=== PATIENT | male | born 1985 | race Caucasian/White ===

== ENCOUNTER 2017-04-26 07:29 | Emergency (ER) | payer BC ==
[2017-04-26] MEDS ORDERED: Bacitracin Oint 1 GM U/D Packet TOP ONE (07:58)
[2017-04-26] MEDS ORDERED: Diphtheria,Pertussis(Acell),Tetanus Vaccine 0.5 ML Syringe IM ONE (07:58)
--- NOTE | 2017-04-26 08:04 | EDM.PDOC ---
ED HPI GENERAL MEDICAL PROBLEM - General Chief Complaint: Skin Complaint Stated Complaint: LEFT LEG INFECTION Time Seen by Provider: 04/26/17 07:51 - History of Present Illness INITIAL COMMENTS - FREE TEXT/NARRATIVE: HISTORY AND PHYSICAL: History of present illness: The patient is a healthy 31-year-old male who presents with complaints of a hardened reddened area to the back of his left thigh that he has had for several months and over the last 1 week it has gotten more red swollen and last evening drained a large amount of fluid. The patient says he has had cysts in the past and he was just monitoring this on his leg and when he got worse over the last 1 week he became concerned. Last evening it drained spontaneously a large amount of fluid and he says that overall it actually looks better. He was concerned because he thought he needed antibiotics. He has no muscle weakness neurosensory changes in the leg and no systemic complaints of fever chills chest pain or shortness of breath. Patient is unsure of his last tetanus shot Review of systems: As per history of present illness and below otherwise all systems reviewed and negative. Past medical history: As per history of present illness and as reviewed below otherwise noncontributory. Surgical history: As per history of present illness and as reviewed below otherwise noncontributory. Social history: No reported history of drug or alcohol abuse. Family history: As per history of present illness and as reviewed below otherwise noncontributory. Physical exam: Gen.: Well-developed well-nourished male who is nontoxic and afebrile HEENT: Atraumatic, normocephalic, negative for conjunctival pallor or scleral icterus, mucous membranes moist, throat clear, neck supple, nontender, trachea midline. Lungs: Clear to auscultation, breath sounds equal bilaterally, chest nontender. Heart: S1S2, regular rate and rhythm no overt murmurs Abdomen: Soft, nondistended, nontender. NABS. Pelvis: Stable nontender. Genitourinary: Deferred. Rectal: Deferred. Extremities: Atraumatic full range of motion of all extremities without defects or deformities. At the posterior left thigh there is a 28 x 25 cm area of pinkish erythema which is ill-defined and there is a large amount of induration at its center which encompasses about two thirds of that measurement. In the center there is a scab-like area with a teeny area of fluctuance and there is some spontaneous drainage noted. The compartment has some brawny edema superficially but the compartment is soft and the patient is has full range of motion of the leg. The area has been marked by me. The legs are, negative for cords or calf pain. Neurovascular unremarkable. Neuro: Awake, alert, oriented. Cranial nerves II through XII unremarkable. Cerebellum unremarkable. Motor and sensory unremarkable throughout. Exam nonfocal. Diagnostics: [] Therapeutics: Tdao, wound care Patient has been offered Toradol patient refused I discussed with the patient that as it spontaneously drained the majority of the fluid and is only a small amount of fluid left which is continuing to drain we would just dress the wound. There is not a significant amount of fluctuance for a formal incision and drainage. We'll place on antibiotics and suggest close follow-up Impression: Left thigh abscess with spontaneous drainage and cellulitis Definitive disposition and diagnosis as appropriate pending reevaluation and review of above. left upper thigh Pain Score (Numeric/FACES): 4 - Related Data Allergies Allergy/AdvReac Type Severity Reaction Status Date / Time No Known Allergies Allergy Verified 04/26/17 07:37 Home Meds: Home Meds . [No Known Home Meds] 04/26/17 [History] Past Medical History Psychiatric History: Reports: None - Infectious Disease History Infectious Disease History: Reports: Chicken Pox, Influenza - Past Surgical History Musculoskeletal Surgical History: Reports: Other (See Below) Other Musculoskeletal Surgeries/Procedures:: left thumb amputation Social & Family History - Tobacco Use Smoking Status *Q: Never Smoker ED ROS GENERAL - Review of Systems Review Of Systems: ROS reveals no pertinent complaints other than HPI. ED EXAM, SKIN/RASH Exam: See Below (See dictation) Course - Vital Signs Last Recorded V/S: Last Vital Signs Temp 36.3 C 04/26/17 07:38 Pulse 63 04/26/17 07:38 Resp 20 04/26/17 07:38 BP 147/89 H 04/26/17 07:38 Pulse Ox 100 04/26/17 07:38 - Orders/Labs/Meds Orders: Active Orders 24 hr Category Date Time Status Vaccines to be Administered [RC] PER UNIT ROUTINE Care 04/26/17 07:59 Ordered Bacitracin [Bacitracin Oint 1 GM] Med 04/26/17 07:58 Once 1 dose TOP ONETIME ONE Diphth,Pertuss(Acell),Tet Vac [Adacel] Med 04/26/17 07:58 Once 0.5 ml IM .ONCE ONE Departure - Departure Time of Disposition: 08:03 Disposition: Home, Self-Care 01 Condition: Good Clinical Impression: Abscess Cellulitis Qualifiers: Site of cellulitis: extremity Site of cellulitis of extremity: lower extremity Laterality: left Qualified Code(s): L03.116 - Cellulitis of left lower limb - Discharge Information Forms: ED Department Discharge Additional Instructions: The following information is given to patients seen in the emergency department who are being discharged to home. This information is to outline your options for follow-up care. We provide all patients seen in our emergency department with a follow-up referral. The need for follow-up, as well as the timing and circumstances, are variable depending upon the specifics of your emergency department visit. If you don't have a primary care physician on staff, we will provide you with a referral. We always advise you to contact your personal physician following an emergency department visit to inform them of the circumstance of the visit and for follow-up with them and/or the need for any referrals to a consulting specialist. The emergency department will also refer you to a specialist when appropriate. This referral assures that you have the opportunity for followup care with a specialist. All of these measure are taken in an effort to provide you with optimal care, which includes your followup. Under all circumstances we always encourage you to contact your private physician who remains a resource for coordinating your care. When calling for followup care, please make the office aware that this follow-up is from your recent emergency room visit. If for any reason you are refused follow-up, please contact the [facility] emergency department at and ask to speak to the emergency department charge nurse. [facility] Primary care- Internal Medicine and Family [address] [id number] Please keep area clean and dry as we discussed and take antibiotics until they are finished. Return to ER as needed and as discussed. Please call and follow- up with one of our providers in the clinic this week for further reevaluation and care. - My Orders Last 24 Hours: My Active Orders 04/26/17 07:58 Bacitracin [Bacitracin Oint 1 GM] 1 dose TOP ONETIME ONE Diphth,Pertuss(Acell),Tet Vac [Adacel] 0.5 ml IM .ONCE ONE 04/26/17 07:59 Vaccines to be Administered [RC] PER UNIT ROUTINE - Assessment/Plan Last 24 Hours: My Active Orders 04/26/17 07:58 Bacitracin [Bacitracin Oint 1 GM] 1 dose TOP ONETIME ONE Diphth,Pertuss(Acell),Tet Vac [Adacel] 0.5 ml IM .ONCE ONE 04/26/17 07:59 Vaccines to be Administered [RC] PER UNIT ROUTINE
[2017-04-26 08:28] VITALS: BP 124/81
== END 2017-04-26 08:24 | disposition home or self-care (01) ==
LOC: MW.ED 07:29
DX: L02.416 Cutaneous abscess of left lower limb (principal); L03.116 Cellulitis of left lower limb; Z23 Encounter for immunization
CPT/HCPCS: 90471; 90715; 99283; 99283-25